=== PATIENT | female | born 1955 | race Caucasian/White ===

== ENCOUNTER → 2016-08-14 | Outpatient (REF) | payer OTHER | END | disposition home or self-care (01) | LOC: M LAB REF 13:31 | PROVIDERS: ATTEND Physician Assistant | DX: R05 Cough (principal); J01.10 Acute frontal sinusitis, unspecified; J02.9 Acute pharyngitis, unspecified ==

== ENCOUNTER → 2016-09-18 | Day surgery (SDC) | payer OTHER ==
[~2016-09-18] VITALS: Ht 152.4 cm; Wt 95.3 kg
[~2016-09-18] MED LIST: ACETAMINOPHEN 325 MG TAB PO PRN; ACETYLCHOLINE OPHTH SOLN 1% 2ML As Ordered ONE; AVAP300T23 PO; AcetaZOLAMIDE 500 MG ER CAP PO ONE; BALANCED SALT IRRIGATION SOL 500ML GLASS BOTTLE (FOR OR EYE COMPOUND) IR ONE; BALANCED SALT IRRIGATION SOLUTION 500ML BAG (FOR OR EYE MACHINE) As Ordered ONE; CEFUROXIME 1MG/0.1ML INTRACAMERAL INJ As Ordered ONE; CRAN500C6 PO; CYCLOPENTOLATE 2% OPHTH SOLN As Ordered ONE; CYCLOPENTOLATE 2% OPHTH SOLN OS ONE; D5W/0.2% SODIUM CHLORIDE 250 ML IV SCH; DOXY-278 PO; GLIP5TAB15 PO; GREE1TAB PO; HEALON DUET (HEALON 10MG/ML 0.55ML & HEALON ENDOCOAT 30MG/ML 0.85ML) As Ordered ONE; HEALON DUET (HEALON 10MG/ML 0.55ML & HEALON ENDOCOAT 30MG/ML 0.85ML) XX ONE; KETOROLAC 0.5% OPHTH SOLN OS ONE; LIDOCAINE 1% SDV 5 ML VIAL As Ordered ONE; LIDOCAINE 1% SDV 5 ML VIAL XX ONE; LIDOCAINE 4% INJ 5 ML AMP OU ONE; METF500T PO; MIDAZOLAM INJ 2 MG/2 ML VIAL (J2250) As Ordered ONE; OFLOXACIN 0.3 % (OCUFLOX) OPTH SOL 5ML As Ordered ONE; OFLOXACIN 0.3 % (OCUFLOX) OPTH SOL 5ML OS ONE; PHENYLEPHRINE 2.5% OPHTH SOL 2ML As Ordered ONE; PHENYLEPHRINE 2.5% OPHTH SOL 2ML OS ONE; POVIDONE-IODINE 5% OPHTH PREP SOL 30ML As Ordered ONE; PRENTAB52 PO; PROPARACAINE 0.5% OPHTH SOL 15ML OS PRN; TRIMETHOBENZAMIDE 300 MG CAP PO PRN; TROPICAMIDE 1% OPHTH SOLN 2 ML As Ordered ONE; TROPICAMIDE 1% OPHTH SOLN 2 ML OS ONE; fentaNYL 100 MCG/2 ML INJECTION (J3010) As Ordered ONE
[2016-09-18 11:10] VITALS: BP 169/80
--- NOTE | 2016-09-18 23:08 | RO ---
DATE OF PROCEDURE: 09/18/2016 PREPROCEDURE DIAGNOSIS: Age-related nuclear cataract and posterior subcapsular cataract left eye. POSTPROCEDURE DIAGNOSIS: Age-related nuclear cataract and posterior subcapsular cataract left eye. PROCEDURE: Phacoemulsification and posterior chamber intraocular lens implantation. The lens used was PCB00, 19.0 diopter. SURGEON: Radha Mayfield MD TAX ADVISOR: ANESTHESIA: Topical with sedation. DESCRIPTION OF PROCEDURE: The patient was prepped and draped in the usual fashion. A lid speculum was placed between the lids. The eye was fixated. A stab incision was made to the anterior chamber, and 1% non-preserved lidocaine was instilled. Then, viscoelastic was instilled. The eye was re-fixated. A 2.75 mm sapphire keratome was used to make a clear corneal temporal limbal incision. Capsulorrhexis was begun with a 30-gauge bent needle and then carried out in a circular fashion with capsulorrhexis forceps. The lens was hydrodissected, and then the phacoemulsification unit was used to make a groove in the nucleus in two meridians. The nucleus was then cracked into four quadrants. Each quadrant was removed with the phacoemulsification unit. Any remaining cortex was removed with the irrigation and aspiration (I and A) unit. Capsular bag was refilled with viscoelastic. A posterior chamber intraocular lens was placed in the capsular bag without difficulty. Any remaining viscoelastic was removed with the I and A unit. The wound was hydrated, and Miochol and cefuroxime were instilled into the anterior chamber. The patient tolerated the procedure well and went to the recovery room in stable condition.
== END | disposition home or self-care (01) ==
LOC: M SDC 08:05
PROVIDERS: ATTEND Ophthalmology
DX: H25.12 Age-related nuclear cataract, left eye (principal); E11.9 Type 2 diabetes mellitus without complications; I10 Essential (primary) hypertension; K21.9 Gastro-esophageal reflux disease without esophagitis; Z79.899 Other long term (current) drug therapy; Z91.040 Latex allergy status; Z88.0 Allergy status to penicillin
CPT/HCPCS: 66984; J2250; J3010

== ENCOUNTER → 2017-11-26 | Outpatient (CLI) | payer OTHER ==
[2017-11-26 12:31] LABS: BASO % 0.5 % (0.0-1.0); EOS # 0.1 10^3/uL (0.0-0.50); EOS % 1.4 % (0.0-3.0); HEMATOCRIT 40.2 % (36.0-47.0); IMMATURE GRANULOCYTE % 0.5 % (0-3.0); LYMPH # 2.9 10^3/uL (1.5-4.5); LYMPH % 33.3 % (24.0-44.0); MEAN CORPUSCULAR HEMOGLOBIN 27.8 pg (27.0-33.0); MEAN CORPUSCULAR HGB CONC 32.3 g/dl (32.0-36.5); MEAN CORPUSCULAR VOLUME 85.9 fl (80.0-96.0); MONO # 0.5 10^3/uL (0.0-0.8); NEUTROPHILS % 58.3 % (36.0-66.0); PLATELET COUNT, AUTOMATED 321 10^3/uL (150-450); RED BLOOD COUNT 4.68 10^6/uL (4.00-5.40); RED CELL DISTRIBUTION WIDTH 13.8 % (11.5-14.5); WHITE BLOOD COUNT 8.6 10^3/uL (4.0-10.0)
[2017-11-26 13:10] LABS: ALBUMIN 3.4 GM/DL (3.2-5.2); ALKALINE PHOSPHATASE 108 U/L (45-117); ALT/SGPT 25 U/L (12-78); ANION GAP 4 MEQ/L (8-16); AST/SGOT 20 U/L (7-37); BILIRUBIN,TOTAL 0.4 MG/DL (0.2-1.0); BLOOD UREA NITROGEN 10 MG/DL (7-18); CALCIUM LEVEL 8.8 MG/DL (8.8-10.2); CARBON DIOXIDE LEVEL 29 MEQ/L (21-32); CHLORIDE LEVEL 107 MEQ/L (98-107); CREATININE FOR GFR 0.55 MG/DL (0.55-1.30); GLOMERULAR FILTRATION RATE > 60.0 (>45); GLUCOSE, FASTING 159 MG/DL (70-100); MAGNESIUM LEVEL 1.9 MG/DL (1.8-2.4); POTASSIUM SERUM 4.7 MEQ/L (3.5-5.1); SODIUM LEVEL 140 MEQ/L (136-145); TOTAL PROTEIN 6.8 GM/DL (6.4-8.2)
== END ==
LOC: M WUC 10:17
DX: I10 Essential (primary) hypertension (principal)
CPT/HCPCS: 83735

== ENCOUNTER → 2017-12-16 | Outpatient (REF) | payer OTHER ==
[2017-12-16 16:29] LABS: APPEARANCE, URINE HAZY (CLEAR); BACTERIA, URINE AUTO NEGATIVE (NEGATIVE); BILIRUBIN, URINE AUTO NEGATIVE (NEGATIVE); BLOOD, URINE BLOOD NEGATIVE (NEGATIVE); CALCIUM OXALATE CRYSTALS SMALL; COLOR, URINE YELLOW (YELLOW); GLUCOSE, URINE (UA) AUTO NEGATIVE (NEGATIVE); KETONE, URINE AUTO NEGATIVE (NEGATIVE); LEUKOCYTE ESTERASE, URINE AUTO NEGATIVE (NEGATIVE); MUCUS, URINE SMALL (NEGATIVE); NITRITE, URINE AUTO NEGATIVE (NEGATIVE); PROTEIN, URINE AUTO NEGATIVE (NEGATIVE); RBC, URINE AUTO 0 /HPF (0-3); SPECIFIC GRAVITY URINE AUTO 1.018 (1.002-1.035); SQUAMOUS EPITHELIAL CELL UR AU 0 /HPF (0-6); UROBILINOGEN, URINE AUTO 0.2 mg/dL (0.0-2.0); WBC, URINE AUTO 0 /HPF (0-3)
[2017-12-16 16:50] LABS: MALB URINE SIEMENS 5.7 MG/L; MAU/CREAT RATIO 4.1 MCG/MG (0.0-30.0)
== END ==
LOC: M LAB REF 16:07
DX: E11.9 Type 2 diabetes mellitus without complications (principal)

== ENCOUNTER → 2018-01-15 | Outpatient (REF) | payer OTHER | LOC: M LAB REF 01-16 12:15 | DX: J02.9 Acute pharyngitis, unspecified (principal) | CPT/HCPCS: 87081 ==

== ENCOUNTER → 2018-12-10 | Outpatient (CLI) | payer OTHER ==
[~2018-12-10] MED LIST changes: -ACETAMINOPHEN 325 MG TAB PO PRN; -ACETYLCHOLINE OPHTH SOLN 1% 2ML As Ordered ONE; -AcetaZOLAMIDE 500 MG ER CAP PO ONE; -BALANCED SALT IRRIGATION SOL 500ML GLASS BOTTLE (FOR OR EYE COMPOUND) IR ONE; -BALANCED SALT IRRIGATION SOLUTION 500ML BAG (FOR OR EYE MACHINE) As Ordered ONE; -CEFUROXIME 1MG/0.1ML INTRACAMERAL INJ As Ordered ONE; +CRAN500C PO; -CRAN500C6 PO; -CYCLOPENTOLATE 2% OPHTH SOLN As Ordered ONE; -CYCLOPENTOLATE 2% OPHTH SOLN OS ONE; -D5W/0.2% SODIUM CHLORIDE 250 ML IV SCH; -DOXY-278 PO; +DOXY-350 PO; -GLIP5TAB15 PO; +GLIP5TAB20 PO; -HEALON DUET (HEALON 10MG/ML 0.55ML & HEALON ENDOCOAT 30MG/ML 0.85ML) As Ordered ONE; -HEALON DUET (HEALON 10MG/ML 0.55ML & HEALON ENDOCOAT 30MG/ML 0.85ML) XX ONE; -KETOROLAC 0.5% OPHTH SOLN OS ONE; -LIDOCAINE 1% SDV 5 ML VIAL As Ordered ONE; -LIDOCAINE 1% SDV 5 ML VIAL XX ONE; -LIDOCAINE 4% INJ 5 ML AMP OU ONE; -METF500T PO; +METF500T13 PO; -MIDAZOLAM INJ 2 MG/2 ML VIAL (J2250) As Ordered ONE; -OFLOXACIN 0.3 % (OCUFLOX) OPTH SOL 5ML As Ordered ONE; -OFLOXACIN 0.3 % (OCUFLOX) OPTH SOL 5ML OS ONE; -PHENYLEPHRINE 2.5% OPHTH SOL 2ML As Ordered ONE; -PHENYLEPHRINE 2.5% OPHTH SOL 2ML OS ONE; -POVIDONE-IODINE 5% OPHTH PREP SOL 30ML As Ordered ONE; -PROPARACAINE 0.5% OPHTH SOL 15ML OS PRN; -TRIMETHOBENZAMIDE 300 MG CAP PO PRN; -TROPICAMIDE 1% OPHTH SOLN 2 ML As Ordered ONE; -TROPICAMIDE 1% OPHTH SOLN 2 ML OS ONE; -fentaNYL 100 MCG/2 ML INJECTION (J3010) As Ordered ONE
--- NOTE | 2018-12-10 13:02 | REP ---
CT Head without contrast HISTORY: Headache COMPARISON: 03/24/1950 There is no intraparenchymal hemorrhage, acute infarct, mass or midline shift. The ventricular system and cortical sulci are dilated consistent with minimal volume loss. There is no extra cerebral collection. There is no fracture. The visualized sinuses are clear. IMPRESSION: Minimal volume loss. Electronically Signed by Rad Argueta MD 12/10/2018 12:54 P
== END ==
LOC: M RAD 12:39
PROVIDERS: ATTEND Physician Assistant
DX: R51 Headache (principal)

== ENCOUNTER → 2019-01-31 | Outpatient (CLI) | payer OTHER ==
--- NOTE | 2019-01-31 14:04 | REP ---
Clinical: Contusion. Technique: AP and lateral views of the right tibia / fibula. Findings: Evidence for prior distal fibular fracture and fixation. No acute fracture or dislocation. Degenerative changes at the knee and ankle joint. Impression: No acute fracture or dislocation. Electronically Signed by Lambert Doty MD 01/31/2019 12:57 P
== END ==
LOC: M ADAMS 12:14 → M WUC 12:14
PROVIDERS: ATTEND Physician Assistant
DX: S80.11XA Contusion of right lower leg, initial encounter (principal); W18.30XA Fall on same level, unspecified, initial encounter; Y92.009 Unspecified place in unspecified non-institutional (private) residence as the place of occurrence of the external cause

== ENCOUNTER → 2019-02-04 | Outpatient (CLI) | payer OTHER ==
--- NOTE | 2019-02-04 12:40 | REP ---
DUPLEX EXTREMITY VENOUS ULTRASOUND: Right lower extremity. HISTORY: Right lower extremity swelling status post contusion. Rule out DVT. FINDINGS: The deep veins are anechoic and fully compressible from the groin to the popliteal fossa in the right lower extremity. Color flow imaging is homogeneous. Spectral Doppler interrogation demonstrates intact respiratory variation in flow and normal manual augmentation of flow. There is no evidence of deep vein thrombosis. Incidental note is made of a 9.7 mm greater saphenous vein showing 5.5 seconds of reflux. IMPRESSION: Reflux in the greater saphenous vein on the right, otherwise negative right lower extremity duplex venous ultrasound. No evidence of deep vein thrombosis. Electronically Signed by Jorge Luis Hall MD 02/04/2019 05:08 P
--- NOTE | 2019-02-04 12:41 | REP ---
SOFT-TISSUE ULTRASOUND RIGHT LOWER EXTREMITY: HISTORY: Contusion right lower leg, anteromedial area of the mid calf 1 week ago. Increased pain and swelling . FINDINGS: Scanning in the area of bruising in the anteromedial calf was performed. There is diffuse subcutaneous edema seen. No fluid collection is appreciated. At the level of the pain and tenderness, they is a fairly prominent varicose vein in the subcutaneous region which is patent. IMPRESSION: Superficial venous varicosity noted. Subcutaneous edema. No abnormal fluid collection. Electronically Signed by Jorge Luis Hall MD 02/04/2019 05:08 P
== END ==
LOC: M RAD 10:30
PROVIDERS: ATTEND Physician Assistant
DX: I83.891 Varicose veins of right lower extremity with other complications (principal)

== ENCOUNTER → 2019-09-14 | Outpatient (CLI) | payer OTHER ==
[2019-09-14 07:50] LABS: BASO % 0.5 % (0.0-1.0); EOS # 0.2 10^3/uL (0.0-0.5); EOS % 2.3 % (0.0-3.0); HEMATOCRIT 38.5 % (36.0-47.0); HEMOGLOBIN 12.3 g/dl (12.0-15.5); LYMPH # 2.2 10^3/uL (1.5-5.0); LYMPH % 29.7 % (24.0-44.0); MEAN CORPUSCULAR HEMOGLOBIN 27.8 pg (27.0-33.0); MEAN CORPUSCULAR HGB CONC 31.9 g/dl (32.0-36.5); MEAN CORPUSCULAR VOLUME 86.9 fl (80.0-96.0); MONO # 0.4 10^3/uL (0.0-0.8); MONO % 5.7 % (0.0-5.0); NEUTROPHILS # 4.6 10^3/uL (1.5-8.5); NEUTROPHILS % 61.4 % (36.0-66.0); PLATELET COUNT, AUTOMATED 328 10^3/uL (150-450); RED BLOOD COUNT 4.43 10^6/uL (4.00-5.40); WHITE BLOOD COUNT 7.4 10^3/uL (4.0-10.0)
[2019-09-14 08:19] LABS: ALBUMIN 3.3 GM/DL (3.2-5.2); ALT/SGPT 26 U/L (12-78); BILIRUBIN,TOTAL 0.3 MG/DL (0.2-1.0); BLOOD UREA NITROGEN 10 MG/DL (7-18); CALCIUM LEVEL 8.3 MG/DL (8.8-10.2); CARBON DIOXIDE LEVEL 30 MEQ/L (21-32); CHLORIDE LEVEL 107 MEQ/L (98-107); CHOLESTEROL LEVEL 184 MG/DL (<200); CHOLESTEROL RISK RATIO 3.607 (<5); CREATININE FOR GFR 0.68 MG/DL (0.55-1.30); FREE T4 1.13 NG/DL (0.76-1.46); GLOMERULAR FILTRATION RATE > 60.0 (>45); GLUCOSE, FASTING 251 MG/DL (70-100); HDL CHOLESTEROL 51 MG/DL (>40); LDL CHOLESTEROL 91 MG/DL (<100); NON-HDL-C 133 MG/DL; POTASSIUM SERUM 4.3 MEQ/L (3.5-5.1); SODIUM LEVEL 141 MEQ/L (136-145); TOTAL PROTEIN 6.9 GM/DL (6.4-8.2); TRIGLYCERIDES LEVEL 212 MG/DL (<150)
[2019-09-14 10:31] LABS: HEMOGLOBIN A1c 8.1 %
== END ==
LOC: M LAB 07:29
PROVIDERS: ATTEND Nurse Practitioner Family
DX: R53.83 Other fatigue (principal)

== ENCOUNTER → 2020-01-15 | Outpatient (CLI) | payer OTHER ==
--- NOTE | 2020-01-15 13:38 | REP ---
RIGHT ANKLE SERIES: FOUR VIEWS. HISTORY: Pain. FINDINGS: Four views of the right ankle demonstrate a screw-plate fixation device in the distal fibula, unchanged in position from January 31, 2019 prior tib-fib radiographs. Ankle mortise is intact. There is tibiotalar joint space narrowing and spur formation, consistent with osteoarthritis. This appears more pronounced than on the prior study. There is Achilles and plantar calcaneal spurring. There is diffuse soft tissue swelling medially and laterally. IMPRESSION: Diffuse soft tissue swelling. Screw-plate fixation distal fibula. Moderate tibiotalar osteoarthritis. Heel spurring. No acute bony abnormality. Electronically Signed by Jorge Luis Hall MD 01/15/2020 02:02 P
== END ==
LOC: M WUC 10:54
PROVIDERS: ATTEND Physician Assistant
DX: M79.89 Other specified soft tissue disorders (principal); M19.071 Primary osteoarthritis, right ankle and foot; M77.31 Calcaneal spur, right foot

== ENCOUNTER → 2020-02-06 | Outpatient (CLI) | payer OTHER ==
--- NOTE | 2020-02-16 11:40 | SLEEPCENT ---
DATE OF PROCEDURE: 02/06/2020 ORDERED BY: KALIA Younger Nocturnal polysomnography was performed for evaluation of sleep physiology in this patient with a history of excessive somnolence, morning headaches, and nonrestorative sleep who has comorbidities of hypertension and diabetes. 7 hour and 27 minutes of data were reviewed. There were 288.5 minutes of sleep identified. Sleep latency was prolonged at 52 minutes. Rapid eye movement (REM) latency was short at 62 minutes. Sleep architecture was fair with periods of wake late in the study. Overall sleep efficiency was 65.2%. There were 3 REM cycles noted. The patient's electrocardiogram showed a sinus rhythm with an average heart rate of 85 beats per minute. Electroencephalogram (EEG) showed normal waveforms for awake and sleep stages. There were 149 respiratory events identified of 10 seconds in duration or greater for an apnea-hypopnea index of 31. The events were primarily obstructive not exclusive to stage nor body posture. Arousals from respiratory events occurred 4.2 times per hour and oxygen desaturations were seen into the 80s. There was some activity in the limb electromyogram (EMG) leads but limb movement arousal index was normal at 1.9. IMPRESSION: Obstructive sleep apnea syndrome (G47.33). Apnea-hypopnea index 31.0. RECOMMENDATIONS: The patient should be encouraged to return to the sleep disorder center for pressure therapy. In the interim, alcohol and sedative avoidance should be practiced and caution exercised during the operation of motor vehicles.
== END ==
LOC: M SLEEP 20:00
PROVIDERS: ATTEND Nurse Practitioner Family
DX: G47.33 Obstructive sleep apnea (adult) (pediatric) (principal)

== ENCOUNTER → 2020-03-07 | Outpatient (CLI) | payer OTHER ==
[2020-04-21 11:20] LABS: HEMOGLOBIN A1c 8.2 %; MALB URINE SIEMENS < 5.0 MG/L
== END ==
LOC: M LAB 11:20
PROVIDERS: ATTEND Nurse Practitioner Family
DX: E11.65 Type 2 diabetes mellitus with hyperglycemia (principal)

== ENCOUNTER → 2020-03-11 | Outpatient (CLI) | payer OTHER ==
--- NOTE | 2020-04-07 13:42 | SLEEPCENT ---
DATE: 03/11/2020 ORDERED BY: Dr. Radha Uribe Nocturnal polysomnography was performed for the titration of pressure therapy in this patient with obstructive sleep apnea syndrome, apnea-hypopnea index 31. For testing, patient was fit with a ResMed AirFit N20 nasal mask of small size. There was 4 cm of water pressure applied to the circuit, and the lights were extinguished. There was 8 hours and 31 minutes of data reviewed. There was 360 minutes of sleep identified. Sleep latency was prolonged at 46 minutes. REM latency was short at 48 minutes. Sleep architecture was good with 5 REM cycles. Overall sleep efficiency was 71.2%. The electrocardiogram showed a sinus rhythm with an average heart rate of 89 beats per minute. EEG showed normal waveforms for wake and sleep. Respiratory events were fully palliated with CPAP at a pressure of +7, and remaining measures of sleep physiology were normal. IMPRESSION: Obstructive sleep apnea syndrome (G47.33). RECOMMENDATION: Nightly use of pressure therapy, 7 cm of water. MTDD
== END ==
LOC: M SLEEP 20:00
PROVIDERS: ATTEND Nurse Practitioner Family
DX: G47.33 Obstructive sleep apnea (adult) (pediatric) (principal)

== ENCOUNTER → 2020-04-12 | Outpatient (REF) | payer OTHER | LOC: M LAB REF 12:26 | PROVIDERS: ATTEND Physician Assistant | DX: R30.0 Dysuria (principal) ==

== ENCOUNTER → 2020-06-07 | Outpatient (CLI) | payer OTHER ==
[2020-06-07 10:32] LABS: HEMOGLOBIN A1c 9.2 %
== END ==
LOC: M LAB 07:13
PROVIDERS: ATTEND Nurse Practitioner Family
DX: E11.65 Type 2 diabetes mellitus with hyperglycemia (principal)

== ENCOUNTER → 2020-09-08 | Outpatient (CLI) | payer OTHER ==
[2020-09-08 09:37] LABS: HEMOGLOBIN A1c 10.7 %
== END ==
LOC: M LAB 07:12
PROVIDERS: ATTEND Nurse Practitioner Family
DX: E11.65 Type 2 diabetes mellitus with hyperglycemia (principal)

== ENCOUNTER → 2020-12-12 | Outpatient (CLI) | payer OTHER ==
[2020-12-12 07:41] LABS: HEMOGLOBIN A1c 9.1 %
[2020-12-12 07:52] LABS: ALBUMIN 3.5 GM/DL (3.2-5.2); ALT/SGPT 22 U/L (12-78); BILIRUBIN,TOTAL 0.4 MG/DL (0.2-1.0); BLOOD UREA NITROGEN 12 MG/DL (7-18); CALCIUM LEVEL 8.8 MG/DL (8.8-10.2); CARBON DIOXIDE LEVEL 29 MEQ/L (21-32); CHLORIDE LEVEL 102 MEQ/L (98-107); CHOLESTEROL LEVEL 187 MG/DL (<200); CHOLESTEROL RISK RATIO 3.596 (<5); CREATININE FOR GFR 0.75 MG/DL (0.55-1.30); GLOMERULAR FILTRATION RATE > 60.0 (>45); GLUCOSE, FASTING 238 MG/DL (70-100); HDL CHOLESTEROL 52 MG/DL (>40); LDL CHOLESTEROL 88 MG/DL (<100); NON-HDL-C 135 MG/DL; POTASSIUM SERUM 4.7 MEQ/L (3.5-5.1); SODIUM LEVEL 139 MEQ/L (136-145); TRIGLYCERIDES LEVEL 233 MG/DL (<150)
[2020-12-12 08:00] LABS: CREATININE, URINE 92.2 MG/DL; MALB URINE SIEMENS 15.7 MG/L
== END ==
LOC: M LAB 06:58
PROVIDERS: ATTEND Nurse Practitioner Family
DX: E11.65 Type 2 diabetes mellitus with hyperglycemia (principal)

== ENCOUNTER 2021-01-22 17:50 | Emergency (ER) | payer OTHER ==
[~2021-01-22] VITALS: Ht 152.4 cm; Wt 91.4 kg
[2021-01-22] MEDS ORDERED: OCUVTAB4 PO (18:16)
[2021-01-22] MEDS ORDERED: HYDR12CA (18:16)
[2021-01-22] MEDS ORDERED: JARD1TAB PO (18:16)
[2021-01-22] MEDS ORDERED: BIMA01SOL (18:16)
[2021-01-22] MEDS ORDERED: SEMA14TA (18:16)
[2021-01-22 19:38] LABS: ALBUMIN 3.8 GM/DL (3.2-5.2); ALT/SGPT 27 U/L (12-78); BILIRUBIN,DIRECT 0.1 MG/DL (0.0-0.2); BILIRUBIN,TOTAL 0.4 MG/DL (0.2-1.0); BLOOD UREA NITROGEN 16 MG/DL (7-18); C REACTIVE PROTEIN QUANTITATIV 1.95 MG/DL (0.00-0.30); CALCIUM LEVEL 9.3 MG/DL (8.8-10.2); CARBON DIOXIDE LEVEL 27 MEQ/L (21-32); CHLORIDE LEVEL 100 MEQ/L (98-107); CREATININE FOR GFR 0.82 MG/DL (0.55-1.30); GLOMERULAR FILTRATION RATE > 60.0 (>45); GLUCOSE, FASTING 211 MG/DL (70-100); POTASSIUM SERUM 4.1 MEQ/L (3.5-5.1); SODIUM LEVEL 134 MEQ/L (136-145); TOTAL PROTEIN 7.5 GM/DL (6.4-8.2)
[2021-01-22 21:33] VITALS: BP 149/75
--- NOTE | 2021-01-22 22:04 | REPVR ---
PROCEDURE INFORMATION: Exam: US Duplex Right Lower Extremity Veins, Limited Exam date and time: 01/22/2021 9:02 PM Age: 66 years old Clinical indication: Pain; Edema, localized; Lower extremity, right; Leg, lower; Additional info: Right leg pain/swelling TECHNIQUE: Imaging protocol: Real-time Duplex ultrasound of the Right Lower Extremity with 2-D viera scale, color Doppler flow and spectral waveform analysis with image documentation. Limited exam was focused on the right lower extremity veins. COMPARISON: US Duplex, Ext,LOWER veins,unilat RIGHT 02/04/2019 10:59 AM FINDINGS: Right deep veins: Unremarkable. The common femoral, femoral, proximal profunda femoral and popliteal veins are patent without thrombus. Normal Doppler waveforms. Normal compressibility and/or augmentation response. Right superficial veins: Unremarkable. Saphenofemoral junction is patent without thrombus. Soft tissues: Unremarkable. IMPRESSION: No evidence of deep vein thrombosis. Electronically signed by: Yuri Ernst On 01/22/2021 22:03:59 PM
== END 2021-01-22 21:35 | disposition home or self-care (01) ==
LOC: M ED 17:50
DX: M79.661 Pain in right lower leg (principal); R60.9 Edema, unspecified; Z79.84 Long term (current) use of oral hypoglycemic drugs; Z79.899 Other long term (current) drug therapy; Z88.0 Allergy status to penicillin; Z91.040 Latex allergy status

== ENCOUNTER → 2021-03-28 | Outpatient (CLI) | payer OTHER ==
[~2021-03-28] MED LIST changes: +BIMA01SOL; +HYDR12CA; +JARD1TAB PO; +OCUVTAB4 PO; +SEMA14TA
[2021-03-28 19:14] LABS: HEMOGLOBIN A1c 8.7 %
== END ==
LOC: M LAB 16:14
PROVIDERS: ATTEND Nurse Practitioner Family
DX: E11.65 Type 2 diabetes mellitus with hyperglycemia (principal)

== ENCOUNTER → 2021-04-19 | Outpatient (CLI) | payer OTHER ==
[2021-04-19 09:04] LABS: BLOOD UREA NITROGEN 13 MG/DL (7-18); CALCIUM LEVEL 8.6 MG/DL (8.8-10.2); CARBON DIOXIDE LEVEL 27 MEQ/L (21-32); CHLORIDE LEVEL 107 MEQ/L (98-107); CREATININE FOR GFR 0.62 MG/DL (0.55-1.30); GLOMERULAR FILTRATION RATE > 60.0 (>45); GLUCOSE, FASTING 215 MG/DL (70-100); POTASSIUM SERUM 4.3 MEQ/L (3.5-5.1); SODIUM LEVEL 138 MEQ/L (136-145)
== END ==
LOC: M LAB 07:35
PROVIDERS: ATTEND Nurse Practitioner Family
DX: E11.65 Type 2 diabetes mellitus with hyperglycemia (principal)

== ENCOUNTER → 2021-05-14 | Outpatient (REF) | payer OTHER | LOC: M WUC 19:55 | PROVIDERS: ATTEND Physician Assistant | DX: R05.9 Cough, unspecified (principal) ==

== ENCOUNTER → 2021-06-26 | Outpatient (CLI) | payer OTHER ==
[2021-06-26 13:35] LABS: HEMOGLOBIN A1c 8.7 %
== END ==
LOC: M LAB 11:59
PROVIDERS: ATTEND Nurse Practitioner Family
DX: E11.65 Type 2 diabetes mellitus with hyperglycemia (principal)

== ENCOUNTER → 2021-06-29 | Outpatient (CLI) | payer OTHER ==
[2021-06-29 15:18] LABS: BLOOD UREA NITROGEN 10 MG/DL (7-18); CREATININE FOR GFR 0.79 MG/DL (0.55-1.30); GLOMERULAR FILTRATION RATE > 60.0 (>45)
== END ==
LOC: M LAB 14:24
PROVIDERS: ATTEND Nurse Practitioner Family
DX: I10 Essential (primary) hypertension (principal)

== ENCOUNTER → 2021-07-02 | Outpatient (CLI) | payer OTHER ==
[~2021-07-02] MED LIST changes: +ISOVUE-370 76% 100ML VIAL As Ordered ONE
--- NOTE | 2021-07-03 04:21 | REP ---
INDICATION: LOWER LT QUARANT PAIN. COMPARISON: None TECHNIQUE: Axial contrast-enhanced images from the lung bases to the pubic symphysis using 100 cc Isovue 370 intravenous contrast material. Coronal and sagittal reformations obtained. This CT examination was performed using the following dose reduction techniques: Automated exposure control, adjustment of mA and/or kv according to the patient's size, and the use of iterative reconstruction technique. FINDINGS: Lung bases are clear. Visualized heart and pericardium normal. Liver, spleen, pancreas, bilateral adrenal glands and kidneys are normal. The enteric system including stomach, small, and large bowel appears normal. No evidence for obstruction or acute inflammatory process. Normal terminal ileum and appendix are identified in the right lower quadrant. Few scattered sigmoid diverticula noted without acute diverticulitis. Pelvis demonstrates normal bladder and age-appropriate uterus/adnexa. No ascites. No free air. No intraperitoneal or retroperitoneal adenopathy. Abdominal aorta and vasculature appear normal. Musculoskeletal structures are intact and without acute osseous abnormality. IMPRESSION: No acute abdominopelvic pathology appreciated. <Electronically signed by Lambert Doty > 07/03/21 0416
== END ==
LOC: M RAD 16:11
PROVIDERS: ATTEND Nurse Practitioner Family
DX: R10.32 Left lower quadrant pain (principal)
CPT/HCPCS: 74177; Q9967

== ENCOUNTER → 2021-07-19 | Outpatient (CLI) | payer OTHER ==
[~2021-07-19] MED LIST changes: -ISOVUE-370 76% 100ML VIAL As Ordered ONE
[2021-07-19 16:34] LABS: CALCIUM LEVEL 9.3 MG/DL (8.8-10.2)
== END ==
LOC: M LAB 15:14
PROVIDERS: ATTEND Nurse Practitioner Family
DX: E83.51 Hypocalcemia (principal)

== ENCOUNTER → 2021-09-27 | Outpatient (CLI) | payer OTHER ==
[~2021-09-27] MED LIST changes: -SEMA14TA; +SEMA14TA2
[2021-09-27 10:11] LABS: GLUCOSE, FASTING 223 MG/DL (70-100)
[2021-09-27 10:12] LABS: ALBUMIN 3.5 GM/DL (3.2-5.2); ALT/SGPT 30 U/L (12-78); BILIRUBIN,TOTAL 0.6 MG/DL (0.2-1.0); BLOOD UREA NITROGEN 15 MG/DL (7-18); CALCIUM LEVEL 9.2 MG/DL (8.8-10.2); CARBON DIOXIDE LEVEL 27 MEQ/L (21-32); CHLORIDE LEVEL 100 MEQ/L (98-107); CHOLESTEROL LEVEL 184 MG/DL (<200); CHOLESTEROL RISK RATIO 3.755 (<5); CREATININE FOR GFR 0.82 MG/DL (0.55-1.30); GLOMERULAR FILTRATION RATE > 60.0 (>45); HDL CHOLESTEROL 49 MG/DL (>40); LDL CHOLESTEROL 88 MG/DL (<100); NON-HDL-C 135 MG/DL; POTASSIUM SERUM 4.1 MEQ/L (3.5-5.1); SODIUM LEVEL 135 MEQ/L (136-145); TOTAL PROTEIN 7.2 GM/DL (6.4-8.2); TRIGLYCERIDES LEVEL 236 MG/DL (<150)
[2021-09-27 10:14] LABS: HEMOGLOBIN A1c 9.1 %
[2021-09-27 10:36] LABS: MALB URINE SIEMENS 6.1 MG/L; MAU/CREAT RATIO 13.2 MCG/MG (0.0-30.0)
== END ==
LOC: M LAB 08:00
PROVIDERS: ATTEND Nurse Practitioner Family
DX: I10 Essential (primary) hypertension (principal)

== ENCOUNTER 2021-12-14 14:36 | Outpatient (CLI) | payer OTHER ==
[~2021-12-14] VITALS: Ht 154.9 cm; Wt 81.8 kg
[2021-12-14 14:40] VITALS: BP 145/85
[2021-12-14 15:40] VITALS: BP 145/75
[2021-12-14] MEDS ORDERED: ZOLEDRONIC ACID 5 MG in IV 1 EA IV ONE (16:30)
== END 2021-12-14 15:40 | disposition home or self-care (01) ==
LOC: M INFU 14:36
PROVIDERS: ATTEND Internal Medicine Endocrinology, Diabetes & Metabolism
DX: M81.0 Age-related osteoporosis without current pathological fracture (principal); Z88.0 Allergy status to penicillin; Z91.040 Latex allergy status
CPT/HCPCS: 96365; J3489

== ENCOUNTER → 2021-12-17 | Outpatient (CLI) | payer OTHER ==
[2021-12-17 18:02] LABS: MAGNESIUM LEVEL 2.4 MG/DL (1.8-2.4)
== END ==
LOC: M PLALAB 16:05
PROVIDERS: ATTEND Nurse Practitioner Family
DX: T78.8XXA Other adverse effects, not elsewhere classified, initial encounter (principal)

== ENCOUNTER → 2022-04-03 | Outpatient (CLI) | payer MEDICARE ==
[2022-04-03 08:22] LABS: BLOOD UREA NITROGEN 22 MG/DL (7-18); CALCIUM LEVEL 9.4 MG/DL (8.8-10.2); CARBON DIOXIDE LEVEL 28 MEQ/L (21-32); CHLORIDE LEVEL 101 MEQ/L (98-107); CREATININE FOR GFR 0.87 MG/DL (0.55-1.30); GLOMERULAR FILTRATION RATE > 60.0 (>45); GLUCOSE, FASTING 247 MG/DL (70-100); POTASSIUM SERUM 4.1 MEQ/L (3.5-5.1); SODIUM LEVEL 137 MEQ/L (136-145)
== END ==
LOC: M LAB 07:08
PROVIDERS: ATTEND Nurse Practitioner Family
DX: M81.0 Age-related osteoporosis without current pathological fracture (principal)

== ENCOUNTER → 2022-09-27 | Outpatient (CLI) | payer MEDICARE ==
[~2022-09-27] MED LIST changes: -DOXY-350 PO; +DOXY-444 PO
[2022-09-27 08:34] LABS: CREATININE, URINE 68.3 MG/DL; MAU/CREAT RATIO 5.8 MCG/MG (0.0-30.0)
[2022-09-27 08:35] LABS: ALBUMIN 3.7 G/DL (3.2-5.2); ALKALINE PHOSPHATASE 83 U/L (46-116); ALT/SGPT 24 U/L (7.0-40); AST/SGOT 16 U/L (<34); BILIRUBIN,TOTAL 0.5 MG/DL (0.3-1.2); BLOOD UREA NITROGEN 21 MG/DL (9-23); CALCIUM LEVEL 9.2 MG/DL (8.3-10.6); CARBON DIOXIDE LEVEL 29 MMOL/L (20-31); CHLORIDE LEVEL 103 MMOL/L (98-107); CHOLESTEROL LEVEL 223 MG/DL (<200); CHOLESTEROL RISK RATIO 4.55 (<5); CREATININE FOR GFR 0.68 MG/DL (0.55-1.30); GLOMERULAR FILTRATION RATE > 60.0 (>45); GLUCOSE, FASTING 228 MG/DL (74-106); LDL CHOLESTEROL 119.2 MG/DL (<100); NON-HDL-C 174 MG/DL; POTASSIUM SERUM 4.6 MMOL/L (3.5-5.1); SODIUM LEVEL 139 MMOL/L (136-145); TOTAL PROTEIN 6.9 G/DL (5.7-8.2); TRIGLYCERIDES LEVEL 274 MG/DL (<150)
== END ==
LOC: M LAB 07:33
PROVIDERS: ATTEND Nurse Practitioner Family
DX: I10 Essential (primary) hypertension (principal); E11.65 Type 2 diabetes mellitus with hyperglycemia

== ENCOUNTER → 2022-11-06 | Outpatient (CLI) | payer MEDICARE, MEDICAID ==
[2022-11-06 14:51] LABS: BLOOD UREA NITROGEN 25 MG/DL (9-23); CARBON DIOXIDE LEVEL 30 MMOL/L (20-31); CHLORIDE LEVEL 100 MMOL/L (98-107); CREATININE FOR GFR 0.79 MG/DL (0.55-1.30); GLOMERULAR FILTRATION RATE > 60.0 (>45); GLUCOSE, FASTING 200 MG/DL (74-106); POTASSIUM SERUM 4.7 MMOL/L (3.5-5.1); SODIUM LEVEL 138 MMOL/L (136-145)
[2022-11-06 14:52] LABS: TOTAL 25(OH) VITAMIN D 36.4 NG/ML (20.0-100.0)
== END ==
LOC: M LAB 12:28
PROVIDERS: ATTEND Nurse Practitioner Family
DX: M81.0 Age-related osteoporosis without current pathological fracture (principal)

== ENCOUNTER → 2022-11-12 | Outpatient (CLI) | payer MEDICARE, MEDICAID ==
[~2022-11-12] MED LIST changes: +HYDR-3713 PO; +METF-838; +PRED20TA PO; +TRUL0.5I
== END ==
LOC: M RAD 15:53
PROVIDERS: ATTEND Nurse Practitioner Family
DX: M25.552 Pain in left hip (principal)

== ENCOUNTER 2022-11-13 09:23 | Emergency (ER) | payer MEDICARE, MEDICAID ==
[~2022-11-13] VITALS: Ht 157.5 cm; Wt 83.8 kg
[~2022-11-13 09:23] MED LIST changes: -HYDR-3713 PO; -METF-838; -PRED20TA PO; -TRUL0.5I
[2022-11-13] MEDS ORDERED: METF-838 (09:32)
[2022-11-13] MEDS ORDERED: TRUL0.5I (09:32)
[2022-11-13 12:23] LABS: BASO # 0.1 10^3/uL (0.0-0.2); BASO % 0.8 % (0.0-1.0); EOS # 0.2 10^3/uL (0.0-0.5); HEMATOCRIT 43.4 % (36.0-47.0); LYMPH # 3.3 10^3/uL (1.5-5.0); LYMPH % 33.5 % (24.0-44.0); MEAN CORPUSCULAR HEMOGLOBIN 29.2 pg (27.0-33.0); MEAN CORPUSCULAR HGB CONC 32.3 g/dl (32.0-36.5); MEAN CORPUSCULAR VOLUME 90.6 fl (80.0-96.0); MONO # 0.5 10^3/uL (0.0-0.8); MONO % 5.5 % (2.0-8.0); NEUTROPHILS # 5.7 10^3/uL (1.5-8.5); NEUTROPHILS % 57.9 % (36.0-66.0); PLATELET COUNT, AUTOMATED 359 10^3/uL (150-450); RED BLOOD COUNT 4.79 10^6/uL (4.00-5.40); WHITE BLOOD COUNT 9.8 10^3/uL (4.0-10.0)
[2022-11-13 12:40] LABS: RSV AMPLIFICATION NEGATIVE (NEGATIVE)
[2022-11-13 12:46] LABS: BLOOD UREA NITROGEN 19 MG/DL (9-23); CALCIUM LEVEL 9.1 MG/DL (8.3-10.6); CARBON DIOXIDE LEVEL 29 MMOL/L (20-31); CHLORIDE LEVEL 102 MMOL/L (98-107); CREATININE FOR GFR 0.74 MG/DL (0.55-1.30); GLOMERULAR FILTRATION RATE > 60.0 (>45); GLUCOSE, FASTING 142 MG/DL (74-106); POTASSIUM SERUM 4.4 MMOL/L (3.5-5.1); SODIUM LEVEL 138 MMOL/L (136-145)
[2022-11-13] MEDS ORDERED: KETOROLAC 30 MG/ML 1ML VIAL IV ONE (14:15)
[2022-11-13] MEDS ORDERED: PRED20TA PO (15:51)
[2022-11-13] MEDS ORDERED: HYDR-3713 PO (15:51)
[2022-11-13 16:03] VITALS: BP 118/65
== END 2022-11-13 16:10 | disposition home or self-care (01) ==
LOC: M ED 09:23
DX: S73.192A Other sprain of left hip, initial encounter (principal); M70.72 Other bursitis of hip, left hip; I10 Essential (primary) hypertension; E11.9 Type 2 diabetes mellitus without complications; F32.A Depression, unspecified; G43.909 Migraine, unspecified, not intractable, without status migrainosus; Z88.0 Allergy status to penicillin; Z91.040 Latex allergy status; Z79.4 Long term (current) use of insulin; Z79.52 Long term (current) use of systemic steroids; Z79.899 Other long term (current) drug therapy
CPT/HCPCS: 73700; 73721; 80048; 85025; 86850; 86900; 86901; 87631; 93005; 96374; 99284; J1885

== ENCOUNTER → 2022-11-25 | Outpatient (REF) | payer MEDICARE, MEDICAID ==
[~2022-11-25] MED LIST changes: +HYDR-3713 PO; +METF-838; +PRED20TA PO; +TRUL0.5I
== END ==
LOC: M PLALAB 11:35
PROVIDERS: ATTEND Nurse Practitioner Family
DX: Z11.3 Encounter for screening for infections with a predominantly sexual mode of transmission (principal)

== ENCOUNTER → 2022-11-25 | Outpatient (CLI) | payer MEDICARE, MEDICAID | LOC: M PLALAB 12:17 | PROVIDERS: ATTEND Nurse Practitioner Family | DX: Z79.899 Other long term (current) drug therapy (principal); Z80.3 Family history of malignant neoplasm of breast; Z80.49 Family history of malignant neoplasm of other genital organs; Z80.1 Family history of malignant neoplasm of trachea, bronchus and lung ==

== ENCOUNTER → 2022-11-25 | Outpatient (CLI) | payer MEDICARE, MEDICAID | LOC: M WHC 09:58 | PROVIDERS: ATTEND Nurse Practitioner Family | DX: Z12.31 Encounter for screening mammogram for malignant neoplasm of breast (principal); Z80.3 Family history of malignant neoplasm of breast ==

== ENCOUNTER → 2022-11-27 | Outpatient (REF) | payer MEDICARE, MEDICAID ==
[2022-11-27 11:50] LABS: GC DNA AMPLIFICATION NEGATIVE (NEGATIVE)
== END ==
LOC: M SFHCWAGY 10:13
PROVIDERS: ATTEND Nurse Practitioner Family
DX: Z11.3 Encounter for screening for infections with a predominantly sexual mode of transmission (principal)

== ENCOUNTER 2022-12-16 14:41 | Outpatient (CLI) | payer MEDICARE, MEDICAID ==
[~2022-12-16] VITALS: Ht 154.9 cm; Wt 81.4 kg
[2022-12-16 14:50] VITALS: BP 132/71
[2022-12-16] MEDS ORDERED: ZOLEDRONIC ACID 5 MG in IV 1 EA IV ONE ×2 (15:00→15:30)
[2022-12-16] MEDS ORDERED: OMEG12004 PO (15:16)
[2022-12-16] MEDS ORDERED: VITAMIN D 3 PO (15:23)
[2022-12-16 15:35] VITALS: BP 117/57
== END 2022-12-16 15:35 | disposition home or self-care (01) ==
LOC: M INFU 14:41
PROVIDERS: ATTEND Internal Medicine Endocrinology, Diabetes & Metabolism
DX: M81.0 Age-related osteoporosis without current pathological fracture (principal); E11.9 Type 2 diabetes mellitus without complications; Z88.0 Allergy status to penicillin
CPT/HCPCS: 96365; J3489

== ENCOUNTER → 2022-12-18 | Outpatient (REF) | payer MEDICARE, MEDICAID ==
[~2022-12-18] MED LIST changes: +OMEG12004 PO; +VITAMIN D 3 PO
== END ==
LOC: M SFHCWAGY 17:59
PROVIDERS: ATTEND Nurse Practitioner Family
DX: N76.89 Other specified inflammation of vagina and vulva (principal)

== ENCOUNTER 2023-02-26 11:08 | Emergency (ER) | payer OTHER ==
[~2023-02-26] VITALS: Ht 154.9 cm; Wt 80.9 kg
[~2023-02-26 11:08] MED LIST changes: -METF-838; +METF-838 PO
[2023-02-26] MEDS ORDERED: GNP250TA9 PO (11:33)
[2023-02-26] MEDS ORDERED: NS 500 ML IV ONE (11:50)
[2023-02-26 12:08] LABS: BASO # 0.1 10^3/uL (0.0-0.2); BASO % 0.5 % (0.0-1.0); EOS # 0.1 10^3/uL (0.0-0.5); EOS % 1.1 % (0.0-3.0); HEMATOCRIT 40.1 % (36.0-47.0); HEMOGLOBIN 13.2 g/dl (12.0-15.5); LYMPH # 3.1 10^3/uL (1.5-5.0); LYMPH % 31.2 % (24.0-44.0); MEAN CORPUSCULAR HEMOGLOBIN 29.4 pg (27.0-33.0); MEAN CORPUSCULAR HGB CONC 32.9 g/dl (32.0-36.5); MEAN CORPUSCULAR VOLUME 89.3 fl (80.0-96.0); MONO # 0.5 10^3/uL (0.0-0.8); MONO % 4.6 % (2.0-8.0); NEUTROPHILS # 6.2 10^3/uL (1.5-8.5); NEUTROPHILS % 62.1 % (36.0-66.0); PLATELET COUNT, AUTOMATED 330 10^3/uL (150-450); RED BLOOD COUNT 4.49 10^6/uL (4.00-5.40)
[2023-02-26 12:31] LABS: BLOOD UREA NITROGEN 15 MG/DL (9-23); CALCIUM LEVEL 8.9 MG/DL (8.3-10.6); CARBON DIOXIDE LEVEL 28 MMOL/L (20-31); CHLORIDE LEVEL 102 MMOL/L (98-107); CK-MB VALUE MASS < 1.0 NG/ML (<3.6); CPK CREATINE PHOSPHOKINASE 56 U/L (34-145); GLOMERULAR FILTRATION RATE > 60.0 (>45); GLUCOSE, FASTING 178 MG/DL (74-106); MB/CK RELATIVE INDEX 1.78 (< OR =4); POTASSIUM SERUM 4.2 MMOL/L (3.5-5.1); SODIUM LEVEL 137 MMOL/L (136-145)
[2023-02-26 12:34] LABS: FREE T4 1.11 NG/DL (0.89-1.76); THYROID STIMULATING HORMONE 1.013 uIU/ML (0.55-4.78)
[2023-02-26 13:33] LABS: CK-MB VALUE MASS < 1.0 NG/ML (<3.6)
[2023-02-26 13:36] LABS: CPK CREATINE PHOSPHOKINASE 57 U/L (34-145); MB/CK RELATIVE INDEX 1.75 (< OR =4)
[2023-02-26 16:04] LABS: CK-MB VALUE MASS < 1.0 NG/ML (<3.6)
[2023-02-26 16:08] LABS: CPK CREATINE PHOSPHOKINASE 51 U/L (34-145); MB/CK RELATIVE INDEX 1.96 (< OR =4)
[2023-02-26 16:15] VITALS: BP 151/70; TEMP 97.6; O2SAT 99
== END 2023-02-26 16:29 | disposition home or self-care (01) ==
LOC: M ED 11:08 → EDBD 11:08 → M ED 16:29
DX: R55 Syncope and collapse (principal); E11.9 Type 2 diabetes mellitus without complications; I10 Essential (primary) hypertension; F32.A Depression, unspecified; G43.909 Migraine, unspecified, not intractable, without status migrainosus; Z88.0 Allergy status to penicillin; Z91.040 Latex allergy status; Z79.899 Other long term (current) drug therapy

== ENCOUNTER 2023-03-11 13:36 | Emergency (ER) | payer OTHER ==
[~2023-03-11] VITALS: Ht 154.9 cm; Wt 80.9 kg
[2023-03-11 14:22] VITALS: BP 137/88; TEMP 97.6; O2SAT 100
[2023-03-11] MEDS ORDERED: ACETAMINOPHEN 500 MG TAB PO ONE (16:40)
== END 2023-03-11 17:02 | disposition home or self-care (01) ==
LOC: EDBD 13:36 → M ED 13:36
DX: S06.0X0A Concussion without loss of consciousness, initial encounter (principal); S09.90XA Unspecified injury of head, initial encounter; W22.8XXA Striking against or struck by other objects, initial encounter; Y99.0 Civilian activity done for income or pay; E11.9 Type 2 diabetes mellitus without complications; F32.A Depression, unspecified; G43.909 Migraine, unspecified, not intractable, without status migrainosus; M81.0 Age-related osteoporosis without current pathological fracture; Z79.899 Other long term (current) drug therapy; Z88.0 Allergy status to penicillin; Z91.040 Latex allergy status

== ENCOUNTER → 2023-03-11 | Outpatient (CLI) | payer OTHER, MEDICARE ==
[~2023-03-11] MED LIST changes: +GNP250TA9 PO
[2023-03-11 08:17] LABS: BLOOD UREA NITROGEN 19 MG/DL (9-23); CALCIUM LEVEL 9.1 MG/DL (8.3-10.6); CARBON DIOXIDE LEVEL 27 MMOL/L (20-31); CHLORIDE LEVEL 104 MMOL/L (98-107); CREATININE FOR GFR 0.75 MG/DL (0.55-1.30); GLOMERULAR FILTRATION RATE > 60.0 (>45); GLUCOSE, FASTING 186 MG/DL (74-106); POTASSIUM SERUM 4.7 MMOL/L (3.5-5.1); SODIUM LEVEL 139 MMOL/L (136-145)
== END ==
LOC: M LAB 07:21
PROVIDERS: ATTEND Nurse Practitioner Family
DX: M81.0 Age-related osteoporosis without current pathological fracture (principal)

== ENCOUNTER → 2023-06-11 | Outpatient (CLI) | payer OTHER ==
[~2023-06-11] MED LIST changes: +PROHANCE 279.3MG/ML 15ML VIAL As Ordered ONE; +PROHANCE 279.3MG/ML 5ML VIAL As Ordered ONE
== END ==
LOC: M RAD 10:18
PROVIDERS: ATTEND Nurse Practitioner Family
DX: Z12.31 Encounter for screening mammogram for malignant neoplasm of breast (principal); N64.89 Other specified disorders of breast
CPT/HCPCS: A9576; C8908

== ENCOUNTER → 2023-07-22 | Outpatient (CLI) | payer OTHER ==
[~2023-07-22] MED LIST changes: -PROHANCE 279.3MG/ML 15ML VIAL As Ordered ONE; -PROHANCE 279.3MG/ML 5ML VIAL As Ordered ONE
[2023-07-22 09:58] LABS: APPEARANCE, URINE MANUAL HAZY (CLEAR); COLOR, URINE MANUAL YELLOW (YELLOW); GLUCOSE, URINE (UA) MANUAL 4+(1000 MG/DL) mg/dL (NEGATIVE); PROTEIN, URINE MANUAL NEGATIVE (NEGATIVE)
[2023-07-22 09:59] LABS: BILIRUBIN, URINE MANUAL NEGATIVE (NEGATIVE); BLOOD URINE MANUAL NEGATIVE (NEGATIVE); KETONE, URINE MANUAL 1+ mg/dL (NEGATIVE); LEUKOCYTE ESTERASE, URINE MAN POSITIVE (NEGATIVE); NITRITE, URINE MANUAL NEGATIVE (NEGATIVE); UROBILINOGEN, URINE MANUAL NORMAL (NORMAL)
[2023-07-22 10:03] LABS: BASO # 0.1 10^3/uL (0.0-0.2); BASO % 0.5 % (0.0-1.0); EOS # 0.1 10^3/uL (0.0-0.5); EOS % 0.9 % (0.0-3.0); HEMATOCRIT 45.3 % (36.0-47.0); HEMOGLOBIN 14.7 g/dl (12.0-15.5); LYMPH # 3.2 10^3/uL (1.5-5.0); LYMPH % 26.9 % (24.0-44.0); MEAN CORPUSCULAR HEMOGLOBIN 29.2 pg (27.0-33.0); MEAN CORPUSCULAR HGB CONC 32.5 g/dl (32.0-36.5); MEAN CORPUSCULAR VOLUME 90.1 fl (80.0-96.0); MONO # 0.6 10^3/uL (0.0-0.8); MONO % 5.1 % (2.0-8.0); NEUTROPHILS % 66.3 % (36.0-66.0); PLATELET COUNT, AUTOMATED 341 10^3/uL (150-450); RED BLOOD COUNT 5.03 10^6/uL (4.00-5.40)
[2023-07-22 10:07] LABS: BACTERIA, URINE MOD AMOUNT; HYALINE CAST, URINE NONE SEEN /lpf (0-1); MUCUS, URINE SMALL AMOUNT (NEGATIVE); RBC, URINE 0-1 /hpf (0-3); SQUAMOUS EPITHELIAL CELL URINE MOD AMOUNT /hpf (SMALL AMT); TRANSITIONAL EPI CELLS, URINE MOD AMOUNT /hpf; YEAST, URINE SMALL AMOUNT
[2023-07-22 10:34] LABS: LIPASE 31 U/L (12-53)
[2023-07-22 10:36] LABS: ALBUMIN 3.6 G/DL (3.2-5.2); ALKALINE PHOSPHATASE 78 U/L (46-116); ALT/SGPT 26 U/L (7.0-40); AMYLASE 57 U/L (30-118); AST/SGOT 18 U/L (<34); BILIRUBIN,TOTAL 0.4 MG/DL (0.3-1.2); BLOOD UREA NITROGEN 22 MG/DL (9-23); CALCIUM LEVEL 9.5 MG/DL (8.3-10.6); CARBON DIOXIDE LEVEL 28 MMOL/L (20-31); CHLORIDE LEVEL 101 MMOL/L (98-107); CREATININE FOR GFR 0.69 MG/DL (0.55-1.30); GLOMERULAR FILTRATION RATE > 60.0 (>45); GLUCOSE, FASTING 225 MG/DL (74-106); POTASSIUM SERUM 4.2 MMOL/L (3.5-5.1); SODIUM LEVEL 138 MMOL/L (136-145); TOTAL PROTEIN 6.8 G/DL (5.7-8.2)
== END ==
LOC: M LAB 09:19
PROVIDERS: ATTEND Nurse Practitioner Family
DX: R10.12 Left upper quadrant pain (principal)

== ENCOUNTER → 2023-09-20 | Outpatient (CLI) | payer OTHER ==
[2023-09-20 09:39] LABS: ALBUMIN 3.6 G/DL (3.2-5.2); ALKALINE PHOSPHATASE 84 U/L (46-116); ALT/SGPT 23 U/L (7.0-40); AST/SGOT 14 U/L (<34); BILIRUBIN,TOTAL 0.5 MG/DL (0.3-1.2); BLOOD UREA NITROGEN 13 MG/DL (9-23); CALCIUM LEVEL 9.3 MG/DL (8.3-10.6); CARBON DIOXIDE LEVEL 29 MMOL/L (20-31); CHLORIDE LEVEL 105 MMOL/L (98-107); CHOLESTEROL LEVEL 211 MG/DL (<200); CHOLESTEROL RISK RATIO 3.63 (<5); GLOMERULAR FILTRATION RATE > 60.0 (>45); GLUCOSE, FASTING 171 MG/DL (74-106); LDL CHOLESTEROL 100.6 MG/DL (<100); POTASSIUM SERUM 5.4 MMOL/L (3.5-5.1); SODIUM LEVEL 139 MMOL/L (136-145); TRIGLYCERIDES LEVEL 262 MG/DL (<150)
== END ==
LOC: M LAB 08:38
PROVIDERS: ATTEND Nurse Practitioner Family
DX: I10 Essential (primary) hypertension (principal)

== ENCOUNTER → 2023-10-01 | Outpatient (REF) | payer OTHER, MEDICARE ==
[2023-10-01 18:24] LABS: CREATININE, URINE 24.7 MG/DL; MALB URINE SIEMENS < 3.0 MG/L; MAU/CREAT RATIO 12.1 MCG/MG (0.0-30.0)
== END ==
LOC: M LAB REF 17:05
PROVIDERS: ATTEND Nurse Practitioner Family
DX: Z00.00 Encounter for general adult medical examination without abnormal findings (principal); E11.65 Type 2 diabetes mellitus with hyperglycemia

== ENCOUNTER → 2023-11-10 | Outpatient (CLI) | payer MEDICARE ==
[2023-11-10 08:49] LABS: BLOOD UREA NITROGEN 15 MG/DL (9-23); CARBON DIOXIDE LEVEL 29 MMOL/L (20-31); CHLORIDE LEVEL 101 MMOL/L (98-107); CREATININE FOR GFR 0.67 MG/DL (0.55-1.30); GLOMERULAR FILTRATION RATE > 60.0 (>45); GLUCOSE, FASTING 277 MG/DL (74-106); POTASSIUM SERUM 4.3 MMOL/L (3.5-5.1); SODIUM LEVEL 136 MMOL/L (136-145)
[2023-11-10 08:51] LABS: TOTAL 25(OH) VITAMIN D 43.8 NG/ML (20.0-100.0)
== END ==
LOC: M LAB 07:35
PROVIDERS: ATTEND Nurse Practitioner Family
DX: M81.0 Age-related osteoporosis without current pathological fracture (principal)

== ENCOUNTER → 2023-11-18 | Outpatient (CLI) | payer MEDICARE | LOC: M WHC 08:56 | PROVIDERS: ATTEND Nurse Practitioner Family | DX: M81.0 Age-related osteoporosis without current pathological fracture (principal); M89.9 Disorder of bone, unspecified ==

== ENCOUNTER → 2023-11-27 | Outpatient (CLI) | payer MEDICAID, MEDICARE, OTHER ==
[~2023-11-27] MED LIST changes: +DOXY-440 PO; -DOXY-444 PO
== END ==
LOC: M WHC 11:21
PROVIDERS: ATTEND Nurse Practitioner Family
DX: Z12.31 Encounter for screening mammogram for malignant neoplasm of breast (principal)

== ENCOUNTER → 2024-06-30 | Outpatient (REF) | payer MEDICARE | LOC: M SFHCWAGY 17:04 | PROVIDERS: ATTEND Nurse Practitioner Family | DX: B37.89 Other sites of candidiasis (principal) ==

== ENCOUNTER 2024-09-16 06:07 | Day surgery (SDC) | payer MEDICARE ==
[~2024-09-16] VITALS: Ht 154.9 cm; Wt 85.8 kg
[~2024-09-16 06:07] MED LIST changes: -BIMA01SOL; +BIMA01SOL OU; +CLOB5CR TOP; +CRAN450T4 PO; +CVS-161 PO; +D 1010002 PO; +ESTR62CR TOP; +GLUCOCIL PO; -HYDR12CA; +HYDR12CA PO; +JARD1TAB3 PO; +OMEP40CA4 PO; +PHENYLEPHRINE 10% OPHTH SOL 5ML OD PRN; +PRES1CHW PO; +SUPPORT PO; +THERTAB52 PO
[2024-09-16] MEDS ORDERED: LIDOCAINE 2% 100MG/5ML SDV (FOR ANES.) As Ordered ONE (06:42)
[2024-09-16] MEDS ORDERED: propofoL 200 MG/20 ML VIAL As Ordered ONE (06:42)
[2024-09-16] MEDS: OFLOXACIN 0.3 % (OCUFLOX) OPTH SOL 5ML OD ONE (07:01)
[2024-09-16] MEDS: CYCLOPENTOLATE 1% OPHTH SOLN 2ML BTL OD SCH (07:01)
[2024-09-16] MEDS: PHENYLEPHRINE 2.5% OPHTH SOL 2ML OD SCH (07:01)
[2024-09-16] MEDS: LIDOCAINE 3.5 % 1ML OPHTH TOPICAL GEL OU ONE (07:01)
[2024-09-16] MEDS: TROPICAMIDE 1% OPHTH SOLN 15ML OD SCH (07:01)
[2024-09-16] MEDS ORDERED: GLUCOSE 4 GM CHEW PO PRN (07:25)
[2024-09-16] MEDS ORDERED: DEXTROSE 50% 50ML SYRINGE IV PRN (07:25)
[2024-09-16] MEDS ORDERED: GLUCAGON INJ 1MG VIAL SC PRN (07:25)
[2024-09-16] MEDS: INSULIN LISPRO (NovoLOG) PER UNIT SC PRN (07:42)
[2024-09-16] MEDS: CEFUROXIME 1MG/0.1ML INTRACAMERAL INJ As Ordered ONE (08:12)
[2024-09-16] MEDS: BSS IRRIG/VANCO(10MG)/TOBRA(5MG)/EPINEPH(1:1000-0.5CC)500ML BAG-ORONLY As Ordered ONE (08:12)
[2024-09-16] MEDS: LIDOCAINE 1% SDV 5ML VIAL As Ordered ONE (08:12)
[2024-09-16 08:26] VITALS: BP 136/70; TEMP 97.1; O2SAT 98
== END 2024-09-16 08:42 | disposition home or self-care (01) ==
LOC: M SDC 06:07
PROVIDERS: ATTEND Ophthalmology
DX: E11.36 Type 2 diabetes mellitus with diabetic cataract (principal); H25.11 Age-related nuclear cataract, right eye; I10 Essential (primary) hypertension; J45.909 Unspecified asthma, uncomplicated; K21.9 Gastro-esophageal reflux disease without esophagitis; G47.30 Sleep apnea, unspecified; G43.909 Migraine, unspecified, not intractable, without status migrainosus; Z79.899 Other long term (current) drug therapy; Z79.84 Long term (current) use of oral hypoglycemic drugs; Z79.85 Long-term (current) use of injectable non-insulin antidiabetic drugs; Z88.0 Allergy status to penicillin; Z91.040 Latex allergy status
CPT/HCPCS: 66984; J0697; J1815; V2632

== ENCOUNTER → 2024-11-05 | Outpatient (CLI) | payer MEDICARE ==
[~2024-11-05] MED LIST changes: +GLIP-318 PO; -GLIP5TAB20 PO; -PHENYLEPHRINE 10% OPHTH SOL 5ML OD PRN
[2024-11-05 09:56] LABS: CREATININE, URINE 68.6 MG/DL; MALB URINE SIEMENS < 3.0 MG/L
[2024-11-05 09:57] LABS: ALBUMIN 3.4 G/DL (3.2-5.2); ALKALINE PHOSPHATASE 86 U/L (35-104); ALT/SGPT 28 U/L (7.0-40); AST/SGOT 20 U/L (<34); BILIRUBIN,TOTAL 0.5 MG/DL (0.3-1.2); BLOOD UREA NITROGEN 17 MG/DL (9-23); CALCIUM LEVEL 9.2 MG/DL (8.3-10.6); CARBON DIOXIDE LEVEL 29 MMOL/L (20-31); CHLORIDE LEVEL 103 MMOL/L (98-107); CHOLESTEROL LEVEL 215 MG/DL (<200); CHOLESTEROL RISK RATIO 3.57 (<5); CREATININE FOR GFR 0.69 MG/DL (0.55-1.30); GLOMERULAR FILTRATION RATE > 90.0 (>45); GLUCOSE, FASTING 253 MG/DL (74-106); HDL CHOLESTEROL 60.1 MG/DL (>40); LDL CHOLESTEROL 92.9 MG/DL (<100); NON-HDL-C 154.9 MG/DL; POTASSIUM SERUM 4.7 MMOL/L (3.5-5.1); SODIUM LEVEL 142 MMOL/L (136-145); TOTAL 25(OH) VITAMIN D 42.1 NG/ML (20.0-100.0); TRIGLYCERIDES LEVEL 310 MG/DL (<150)
== END ==
LOC: M LAB 08:02
PROVIDERS: ATTEND Nurse Practitioner Family
DX: M81.0 Age-related osteoporosis without current pathological fracture (principal); E78.00 Pure hypercholesterolemia, unspecified

== ENCOUNTER → 2024-11-20 | Outpatient (CLI) | payer MEDICARE ==
[2024-11-20 09:58] LABS: BASO # 0.1 10^3/uL (0.0-0.2); BASO % 0.7 % (0.0-1.0); EOS # 0.1 10^3/uL (0.0-0.5); EOS % 1.2 % (0.0-3.0); HEMATOCRIT 46.6 % (36.0-47.0); HEMOGLOBIN 15.2 g/dl (12.0-15.5); LYMPH # 3.1 10^3/uL (1.5-5.0); LYMPH % 34.2 % (24.0-44.0); MEAN CORPUSCULAR HEMOGLOBIN 28.8 pg (27.0-33.0); MEAN CORPUSCULAR HGB CONC 32.6 g/dl (32.0-36.5); MEAN CORPUSCULAR VOLUME 88.4 fl (80.0-96.0); MONO # 0.5 10^3/uL (0.0-0.8); MONO % 5.7 % (2.0-8.0); NEUTROPHILS # 5.2 10^3/uL (1.5-8.5); NEUTROPHILS % 57.5 % (36.0-66.0); PLATELET COUNT, AUTOMATED 391 10^3/uL (150-450); RED BLOOD COUNT 5.27 10^6/uL (4.00-5.40)
[2024-11-20 10:23] LABS: MALB URINE SIEMENS < 3.0 MG/L
[2024-11-20 10:39] LABS: ALBUMIN 3.7 G/DL (3.2-5.2); ALKALINE PHOSPHATASE 93 U/L (35-104); ALT/SGPT 29 U/L (7.0-40); AST/SGOT 19 U/L (<34); BILIRUBIN,TOTAL 0.5 MG/DL (0.3-1.2); BLOOD UREA NITROGEN 17 MG/DL (9-23); CALCIUM LEVEL 9.2 MG/DL (8.3-10.6); CARBON DIOXIDE LEVEL 26 MMOL/L (20-31); CHLORIDE LEVEL 105 MMOL/L (98-107); CHOLESTEROL LEVEL 222 MG/DL (<200); CHOLESTEROL RISK RATIO 3.55 (<5); CREATININE FOR GFR 0.67 MG/DL (0.55-1.30); GLOMERULAR FILTRATION RATE > 90.0 (>45); GLUCOSE, FASTING 204 MG/DL (74-106); HDL CHOLESTEROL 62.4 MG/DL (>40); LDL CHOLESTEROL 106.8 MG/DL (<100); NON-HDL-C 159.6 MG/DL; POTASSIUM SERUM 4.8 MMOL/L (3.5-5.1); SODIUM LEVEL 140 MMOL/L (136-145); TOTAL PROTEIN 7.4 G/DL (5.7-8.2); TRIGLYCERIDES LEVEL 264 MG/DL (<150)
[2024-11-20 10:44] LABS: TOTAL 25(OH) VITAMIN D 54.1 NG/ML (20.0-100.0)
== END ==
LOC: M LAB 08:11
PROVIDERS: ATTEND Nurse Practitioner Family
DX: I10 Essential (primary) hypertension (principal)

== ENCOUNTER → 2024-12-06 | Outpatient (REF) | payer MEDICARE, OTHER | LOC: M SFHCWAGY 12:42 | PROVIDERS: ATTEND Nurse Practitioner Family | DX: B37.89 Other sites of candidiasis (principal) ==

== ENCOUNTER → 2024-12-06 | Outpatient (CLI) | payer MEDICARE, OTHER | LOC: M WHC 10:22 | PROVIDERS: ATTEND Nurse Practitioner Family | DX: Z12.31 Encounter for screening mammogram for malignant neoplasm of breast (principal); R92.313 Mammographic fatty tissue density, bilateral breasts ==

== ENCOUNTER → 2025-03-21 | Outpatient (CLI) | payer MEDICARE ==
[~2025-03-21] MED LIST changes: +HYDR12.510 PO; -HYDR12CA PO
[2025-03-21 09:32] LABS: CALCIUM LEVEL 8.7 MG/DL (8.3-10.6); CARBON DIOXIDE LEVEL 29 MMOL/L (20-31); CHLORIDE LEVEL 103 MMOL/L (98-107); CREATININE FOR GFR 0.69 MG/DL (0.55-1.30); GLOMERULAR FILTRATION RATE > 90.0 (>39); POTASSIUM SERUM 4.0 MMOL/L (3.5-5.1); SODIUM LEVEL 143 MMOL/L (136-145)
== END ==
LOC: M LAB 07:57
PROVIDERS: ATTEND Nurse Practitioner Family
DX: M81.0 Age-related osteoporosis without current pathological fracture (principal)

== ENCOUNTER 2025-07-10 14:15 | Emergency (ER) | payer MEDICARE ==
[~2025-07-10] VITALS: Ht 154.9 cm; Wt 77.1 kg
[2025-07-10 14:37] LABS: BASO # 0.1 10^3/uL (0.0-0.2); BASO % 0.9 % (0.0-1.0); EOS # 0.2 10^3/uL (0.0-0.5); EOS % 1.8 % (0.0-3.0); LYMPH # 3.5 10^3/uL (1.5-5.0); LYMPH % 34.9 % (24.0-44.0); MONO # 0.6 10^3/uL (0.0-0.8); MONO % 6.2 % (2.0-8.0); NEUTROPHILS # 5.6 10^3/uL (1.5-8.5); NEUTROPHILS % 55.8 % (36.0-66.0); PLATELET COUNT, AUTOMATED 372 10^3/uL (150-450)
[2025-07-10 15:03] LABS: CALCIUM LEVEL 8.7 MG/DL (8.3-10.6); CARBON DIOXIDE LEVEL 24 MMOL/L (20-31); CHLORIDE LEVEL 104 MMOL/L (98-107); CREATININE FOR GFR 0.87 MG/DL (0.55-1.30); GLOMERULAR FILTRATION RATE 71.6 (>39); POTASSIUM SERUM 4.2 MMOL/L (3.5-5.1); SODIUM LEVEL 139 MMOL/L (136-145)
[2025-07-10 15:40] VITALS: O2SAT 100
[2025-07-10 17:35] VITALS: BP 128/74; TEMP 97.4; O2SAT 100
== END 2025-07-10 17:37 | disposition home or self-care (01) ==
LOC: M ED 14:15
DX: R06.00 Dyspnea, unspecified (principal); X31.XXXA Exposure to excessive natural cold, initial encounter; R94.31 Abnormal electrocardiogram [ECG] [EKG]; E11.9 Type 2 diabetes mellitus without complications; I10 Essential (primary) hypertension; E78.5 Hyperlipidemia, unspecified; Z87.891 Personal history of nicotine dependence; Z88.0 Allergy status to penicillin; Z91.040 Latex allergy status; Z79.84 Long term (current) use of oral hypoglycemic drugs; Z79.4 Long term (current) use of insulin; Z79.899 Other long term (current) drug therapy; Z79.810 Long term (current) use of selective estrogen receptor modulators (SERMs)